=== PATIENT | female | born 1945 | race Caucasian/White ===

== ENCOUNTER 2018-09-01 07:09 | Day surgery (SDC) | payer BC, OTHER ==
[2018-08-31 17:06] VITALS: BMI 26.0
[2018-09-01] MEDS ORDERED: DEXAMETHASONE SOD PHOSPHATE/PF 10 MG/ML SDV ONE (08:19)
[2018-09-01] MEDS ORDERED: MIDAZOLAM HCL 2 MG/2 ML SINGLE DOSE VIAL ONE ×2 (08:20)
[2018-09-01] MEDS ORDERED: ONDANSETRON 4 MG/2 ML VIAL IVPUSH PRN (08:55)
[2018-09-01] MEDS ORDERED: oxyCODONE HCL 5 MG TABLET PO PRN (08:55)
[2018-09-01] MEDS ORDERED: LACTATED RINGERS SOLUTION 1,000 ML IV SCH (09:00)
[2018-09-01] MEDS ORDERED: PROPOFOL 20 ML ONE ×2 (09:04→10:26)
--- NOTE | 2018-09-01 09:06 | HP ---
[facility]ellite [facility] - Chief Complaint Chief Complaint: right shoulder pain History of Present Illness: right shoulder impingement syndrome History Source: Patient Limitations to Obtaining History: No Limitations - Past Medical History Allergies/Adverse Reactions: Allergies Allergy/AdvReac Type Severity Reaction Status Date / Time No Known Allergies Allergy Verified 08/31/18 17:20 - Current Medications Current Medications: Home Medications Medication Instructions Recorded Travoprost [Travatan Z] 1 drop OU HS 08/31/18 Satellite Physical Exam - Physical Examination Vital Signs: Vital Signs Period Temp Pulse Resp BP Sys/May Pulse Ox Last 24 Hr 98.4 F-98.4 F 66-66 18-18 140-140/90-90 97 General Appearance: Well Nourished ENT: Clear Lung: Clear to auscultation Heart: Regular rate & rhythm Breasts: Soft Abdomen: Soft Extremities: No edema Satellite Impression/Plan - Impression/Plan Impression: right shoulder impingement syndrome, loose bodies Operative Procedure: right shoulder arthroscopy, decompression Date to be Performed: 09/01/18
[2018-09-01] MEDS ORDERED: ceFAZolin SODIUM 1 GM VIAL IVPB ONE (09:48)
[2018-09-01] MEDS ORDERED: ceFAZolin SODIUM 1 GM VIAL ONE (09:57)
--- NOTE | 2018-09-01 10:50 | OP ---
Operative Note - Note: Operative Date: 09/01/18 ([facility]) Pre-Operative Diagnosis: right shoulder impingement, loose bodies Operation: right shoulder arthroscopy with SAD, removal of loose bodies, partial synovectomy,HODA Post-Operative Diagnosis: Same as Pre-op Surgeon: Mo Roman Field Laborer: Sridhar Kaplan Anesthesiologist/POT PRESS OPERATOR: Ramakrishna Christensen Anesthesia: General, Local Specimens Removed: shavings, loose bodies Estimated Blood Loss (mls): 5 Operative Report Dictated: Yes
[2018-09-01 12:39] VITALS: TEMP 97.8
[2018-09-01 14:20] VITALS: BP 112/63; PULSE 73
--- NOTE | 2018-09-01 15:11 | OP ---
DATE OF OPERATION: 09/01/2018 PREOPERATIVE DIAGNOSIS: Right shoulder impingement syndrome, possible rotator cuff tear, synovitis, loose bodies and adhesive capsulitis. POSTOPERATIVE DIAGNOSIS: Right shoulder impingement syndrome, possible rotator cuff tear, synovitis, loose bodies and adhesive capsulitis. PROCEDURES PERFORMED: 1. Right shoulder arthroscopy. 2. Subacromial decompression. 3. Removal of loose bodies. 4. Partial synovectomy. 5. Manipulation under anesthesia. SURGEON: Mo Roman M.D. MARKETING RESEARCH ANALYST: Geni Hillman M.D. ANESTHESIOLOGIST: Ramakrishna Christensen CRNA ANESTHESIA: Right interscalene block with MAC anesthesia. DRAINS: None. COMPLICATIONS: None. SPECIMENS: Arthroscopic shavings. BLOOD LOSS: 100 mL. BLOOD GIVEN: None. INDICATIONS: This patient is a 73-year-old female with the preoperative diagnosis of right shoulder impingement syndrome, possible rotator cuff tear, loose bodies, synovitis and adhesive capsulitis. After understanding the potential risks, complications, alternatives and benefits of surgery versus nonsurgical treatment, the patient elected to undergo this procedure. DESCRIPTION PROCEDURE: The patient was brought to the operating room. A peripheral IV placed, and IV sedation given. IV Ancef 2 g was given. A right interscalene block was performed. She was placed into the beach-chair position with ample padding throughout, including a Styrofoam header set up operator. I did a manipulation under anesthesia. The patient's shoulder was surprisingly tight. I was only able to actively forward flex her to 90 degrees and abduct her to 80 degrees. After manipulation, I was able to get her to full internal and external rotation as well as full forward flexion and abduction. I was able to feel several pops during the manipulation and overall was able to regain a tremendous amount of range of motion. Then the right upper extremity was prepped and draped in a sterile fashion. The bony landmarks were marked out with a marking pen. A posterior portal was established. A diagnostic glenohumeral arthroscopy was performed. Immediately it was apparent that there was a lot of pathology in the shoulder. There was a lot of synovitis inhibiting our ability to see. Therefore, an anterior portal was established under direct visualization using a spinal needle. A 15 scalpel blade was utilized to cut down through the skin and a green cannula introduced into the anterior aspect of the shoulder. An ArthroCare wand and a straight shaver were used to do a partial synovectomy. This revealed multiple loose bodies, likely cartilage, which were also removed from the glenohumeral joint. Once this was done, it revealed that the patient had a very bad glenohumeral joint. 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 The area was debrided and cleaned as much as possible. The patient had a lot of frayed edges of the labrum, both anteriorly and posteriorly. These were debrided as well. An additional partial synovectomy was performed. Once the gutters were also cleaned out of cartilaginous debris, it was cleaned up and visualization was much better, but it was apparent that the patient would be a candidate for a right total shoulder replacement. It was irrigated and washed out again. Next our attention was turned to the subacromial space. A lateral portal was established under direct visualization. Using a spinal needle, a Green cannula was introduced into the joint. The patient had a tremendous amount of inflammatory bursitis. This was removed with the ArthroCare wand and the straight shaver after the soft tissue bursectomy. This revealed a very large subclavicular spur. This was cleaned of all soft tissue and then taken down with the 5.5-mm oval bur, fine-tuned in reverse, and then with the shaver. The AC joint looked okay. The distal clavicle looked okay. On the subacromial decompression was done, I was able to better visualize the top surface of the rotator cuff. Additional bursectomy was performed. The arm was put through a full range of motion. The rotator cuff completely covered the humeral head. There was no need for a rotator cuff repair. Next the area was copiously irrigated and washed out. All instrumentation was removed. The arthroscopy portals were closed with 2-0 nylon suture and then washed, cleaned and covered Aquacel dressing, and put into a sling. Total operative time was about 50 minutes. There were no complications during the case. The patient tolerated the procedure quite well and was brought to the ambulatory recovery room in stable condition. GENI HILLMAN M.D. [id number]
--- NOTE | 2018-09-02 17:34 | PATH ---
Surgical Pathology Report Patient Name: FARSHAD ISRAEL [facility]. Rec. #: [id number] /Age/Gender: 1945 (Age: 73) / F Account: [id number] Location: [facility] SURGICAL Taken: 09/01/2018 Received: 09/01/2018 Reported: 09/02/2018 Physicians: Sridhar Kaplan M.D. Specimen(s) Received RIGHT SHOULDER SHAVINGS Clinical History Right shoulder tear Final Diagnosis SHOULDER SHAVINGS, RIGHT, ARTHROSCOPY, SUBACROMIAL DECOMPRESSION, PARTIAL SYNOVECTOMY: FRAGMENTS OF BENIGN CARTILAGE, DENSE FIBROCONNECTIVE TISSUE, ADIPOSE TISSUE, AND SKELETAL MUSCLE. Electronically Signed Karen Barnett M.D. Gross Description Received in formalin, labeled "right shoulder shaving," is a 5.0 x 4.0 x 0.4 cm. aggregate of link-yellow soft tissue fragments. A territory account representative portion is submitted in one cassette. /09/01/201809/01/2018
== END 2018-09-01 13:15 | disposition home or self-care (01) ==
LOC: JASU-SURG 07:09
PROVIDERS: ATTEND Orthopaedic Surgery
PROC: 0RNK4ZZ Release Left Shoulder Joint, Percutaneous Endoscopic Approach (ICD-10-PCS; principal; 2018-09-01 09:00)
DX: M75.41 Impingement syndrome of right shoulder (principal); M65.9 Synovitis and tenosynovitis, unspecified; M24.011 Loose body in right shoulder; M75.02 Adhesive capsulitis of left shoulder
CPT/HCPCS: 88304-TC; 94760

== ENCOUNTER 2022-07-01 04:18 | Day surgery (SDC) | payer OTHER, BC ==
[2022-06-27 13:52] VITALS: BMI 23.6
[~2022-07-01 04:18] MED LIST: DEXAMETHASONE SOD PHOSPHATE 10 MG/1 ML VIAL IM ONE; IOHEXOL 180 MG/1 ML ML IJ ONE
[2022-07-01] MEDS ORDERED: ACETAMINOPHEN 500 MG TABLET (FP) PO PRN (08:52)
[2022-07-01] MEDS ORDERED: BUPIVACAINE HCL/PF 0.25% (2.5MG/ML) 10 ML VIAL ONE (13:42)
[2022-07-01] MEDS ORDERED: DEXAMETHASONE SOD PHOSPHATE 10 MG/1 ML VIAL ONE (13:42)
[2022-07-01 14:04] VITALS: BP 142/88; PULSE 84; RESP 16; TEMP 98
== END 2022-07-01 16:03 | disposition home or self-care (01) ==
LOC: JASU-SURG 04:18
PROVIDERS: ATTEND Pain Medicine Pain Medicine
DX: Z53.8 Procedure and treatment not carried out for other reasons (principal)
CPT/HCPCS: J1100

== ENCOUNTER 2022-07-22 04:33 | Day surgery (SDC) | payer OTHER, BC ==
[2022-07-14 18:53] VITALS: BMI 23.6
[2022-07-22] MEDS ORDERED: BUPIVACAINE HCL/PF 0.75% 10 ML VIAL ONE (07:46)
[2022-07-22] MEDS ORDERED: DEXAMETHASONE SOD PHOSPHATE 10 MG/1 ML VIAL ONE (07:46)
[2022-07-22] MEDS ORDERED: BUPIVACAINE HCL/PF 0.25% (2.5MG/ML) 10 ML VIAL ONE ×2 (07:46→13:17)
[2022-07-22] MEDS ORDERED: LIDOCAINE HCL/PF 1% SDV 5ML VIAL ONE (07:46)
[2022-07-22] MEDS ORDERED: MIDAZOLAM HCL 2 MG/2 ML SINGLE DOSE VIAL ONE ×2 (13:24→13:42)
[2022-07-22] MEDS ORDERED: ACETAMINOPHEN 500 MG TABLET (FP) PO PRN (13:31)
[2022-07-22] MEDS ORDERED: ONDANSETRON 4 MG/2 ML VIAL ONE (13:36)
[2022-07-22 15:09] VITALS: BP 109/62; PULSE 64; RESP 20; TEMP 97.4
== END 2022-07-22 15:37 | disposition home or self-care (01) ==
LOC: JASU-SURG 04:33
PROVIDERS: ATTEND Pain Medicine Pain Medicine
PROC: 3E0T33Z Introduction of Anti-inflammatory into Peripheral Nerves and Plexi, Percutaneous Approach (ICD-10-PCS; 2022-07-22)
PROC: 3E0T3BZ Introduction of Anesthetic Agent into Peripheral Nerves and Plexi, Percutaneous Approach (ICD-10-PCS; principal; 2022-07-22 13:40)
DX: G90.512 Complex regional pain syndrome I of left upper limb (principal)
CPT/HCPCS: 76000-TC-FY; J1100

== ENCOUNTER 2022-09-16 05:14 | Day surgery (SDC) | payer OTHER, BC ==
[2022-09-10 13:23] VITALS: BMI 23.3
[~2022-09-16 05:14] MED LIST changes: -DEXAMETHASONE SOD PHOSPHATE 10 MG/1 ML VIAL IM ONE; -IOHEXOL 180 MG/1 ML ML IJ ONE; +LIDOCAINE HCL 1% PRESERVATIVE FREE - 30ML VIAL IJ ONE
[2022-09-16] MEDS ORDERED: LIDOCAINE HCL/PF 1% SDV 5ML VIAL ONE (07:31)
[2022-09-16] MEDS ORDERED: ACETAMINOPHEN 500 MG TABLET (FP) PO PRN (07:33)
[2022-09-16] MEDS ORDERED: LIDOCAINE HCL 1% PRESERVATIVE FREE - 30ML VIAL IJ ONE (09:42)
[2022-09-16 10:52] VITALS: BP 119/64; PULSE 76; RESP 16; TEMP 98.6
== END 2022-09-16 12:05 | disposition home or self-care (01) ==
LOC: JASU-SURG 05:14
PROVIDERS: ATTEND Pain Medicine Pain Medicine
PROC: 01HY3MZ Insertion of Neurostimulator Lead into Peripheral Nerve, Percutaneous Approach (ICD-10-PCS; principal; 2022-09-16 09:30)
DX: G89.4 Chronic pain syndrome (principal); M79.642 Pain in left hand
CPT/HCPCS: 64555; C1778

== ENCOUNTER 2022-10-10 04:12 | Day surgery (SDC) | payer OTHER, BC ==
[2022-10-01 11:41] VITALS: BMI 27.2
[~2022-10-10 04:12] MED LIST changes: +ACETAMINOPHEN 500 MG TABLET (FP) PO PRN; -LIDOCAINE HCL 1% PRESERVATIVE FREE - 30ML VIAL IJ ONE
[2022-10-10 07:28] VITALS: RESP 18
[2022-10-10] MEDS ORDERED: ACETAMINOPHEN 500 MG TABLET (FP) PO PRN (09:05)
[2022-10-10] MEDS ORDERED: LIDOCAINE HCL 1% PRESERVATIVE FREE - 30ML VIAL IJ ONE (09:40)
[2022-10-10] MEDS ORDERED: ACETAMINOPHEN 500 MG TABLET (FP) ONE (10:30)
[2022-10-10 11:42] VITALS: BP 116/64; PULSE 94; TEMP 98.6
== END 2022-10-10 11:50 | disposition home or self-care (01) ==
LOC: JASU-SURG 04:12
PROVIDERS: ATTEND Pain Medicine Pain Medicine
PROC: 01HY3MZ Insertion of Neurostimulator Lead into Peripheral Nerve, Percutaneous Approach (ICD-10-PCS; principal; 2022-10-10 09:30)
DX: G89.4 Chronic pain syndrome (principal); M79.642 Pain in left hand
CPT/HCPCS: 64555; C1778